=== PATIENT | female | born 1975 | race Caucasian/White ===

== ENCOUNTER 2019-11-14 11:00 | Outpatient (RCR) | payer MEDICARE, MEDICAID, SELFPAY ==
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
--- NOTE | 2019-11-14 11:35 | PTOPEVAL ---
PHYSICAL THERAPY DISCHARGE NOTE Thank you for referring Pat Lomax to [facility]. I recommend Pat discharge from skilled PT at this time with HEP. Please review, sign, date and return this plan of care JAZMINE. I agree with and certify that the following plan of care is medically necessary. Referring Physician Date Attending Provider: Romeo Dubon, PA Diagnosis left shoulder pain Onset June 2019 Subjective Information Pat reports that she has not Query Text:As Reported By Patient/ had much pain in the shoulder Family except when she did an exercise that caused it to pop . After that occasion she states it hurt for two days, but no longer hurts today. Pain Assessment Timing of Pain Assessment Timing of Pain Assessment Assessment Pain Scale Pain Scale Used Numeric (1 - 10) Self Report Pain Assessment Left Shoulder(s) Reported Pain Level 0 Pain Description Aching,Dull Pain Aggravating Factors Changing Position,Exercise/ Activity Pain Behaviors None Interventions Used By Clinicians Exercise Pain Score Pain Score 0: Self Report Upper Extremity Range of Motion Scapular/ Shoulder Range of Motion Left Shoulder Flexion - Active 160 Shoulder Abduction - Active 160 Shoulder Medial Rotation - Active T8 Query Text:Reach Behind the Back Shoulder Lateral Rotation - Active T2 Query Text:Reach Behind the Head Upper Extremity Muscle Strength Testing Scapular/Shoulder Left Shoulder Flexion Strength 5 Normal Shoulder Abduction Strength 5 Normal Shoulder Medial Rotation Strength 5 Normal Shoulder Lateral Rotation Strength 4+ Good + Shoulder Strength Comments feels tight to the pressure Muscle Length Testing Muscle Length Testing Pectoralis Major- Sternal Fibers Muscle (R) Moderate Tightness Length Pectoralis Major- Clavicular Fibers (R) Moderate Tightness Muscle Length Palpation improved tissue quality throughout; pec major tendon continues to have tightness noted PT Clinical Summary Pat has participated in 8 visits of physical therapy. She demonstrates today a significant improvement in strength and ROM of left shoulder as well as decreased reports of pain. She does report tightness and there is noted decreased lef
== END 2019-11-14 13:34 | disposition home or self-care (01) ==
LOC: ANHPT 11:00
PROVIDERS: PCP Physician Assistant; Visit Provider Physician Assistant
DX: M25.812 Other specified joint disorders, left shoulder (principal)
CPT/HCPCS: 97035; 97110; 97140; 97161; 97542

== ENCOUNTER → 2021-02-26 08:05 | Outpatient (CLI) | payer MEDICARE, MEDICAID, SELFPAY ==
--- NOTE | ~2021-02-26 | MR_ITS ---
EXAMINATION: MR knee LT wo con DATE: 02/26/2021 09:28 INDICATION: Left knee pain TECHNIQUE: Magnetic resonance imaging (MRI) of the left knee was performed without intravenous contra st. Sequences included coronal PD-weighted FSE, coronal PD-weighted FS FSE, sagittal T2-weighted FSE , sagittal PD-weighted FS FSE and axial PD weighted fat saturated FSE. COMPARISON: Left knee radiographs dated 01/14/2021 FINDINGS: Medial compartment: Medial meniscus is normal. Chondral swelling and deep fissuring without degenerative subchondral lopez ges at the posterior weightbearing medial femoral condyle. Remaining cartilage in medial compartment is normal. Lateral compartment: Longitudinal horizontal tear extending to the inferior articular surface of the posterior body and la teral side of the posterior horn of the lateral meniscus. Partial-thickness chondral ulceration and d eep fissuring with mild underlying cortical irregularity and subarticular edema at the junction of th e anterior to central weightbearing lateral femoral condyle. Mild partial-thickness chondral fissurin g without degenerative subchondral changes at the posterior margin of the lateral tibial plateau. Patellofemoral compartment: Deep chondral fissuring with cortical irregularity and mild subarticular edema at the central aspect of the patellar apical ridge and immediately adjacent medial and lateral patellar facets. Trochlear c artilage is normal. Ligaments and tendons: Anterior and posterior cruciate ligaments are normal. The medial collateral ligament and fibular franck ateral ligament complex are normal. The extensor mechanism is normal. The visualized medial and later al hamstring tendons as well as the iliotibial band are normal. Fluid: Physiologic amount of fluid in the joint space. No loose osteochondral bodies identified. Osseous/other: No fracture or pathologic marrow replacing process. IMPRESSION: 1. Lateral meniscal tear. 2. Mild bilateral patellofemoral osteoarthritis with regions of high-grade chondromalacia at the guzman lla and weightbearing lateral femoral condyle. Reviewed, dictated and finalized at location [facility]. IMPRESSION: 1. Lateral meniscal tear. 2. Mild bilateral patellofemoral osteoarthritis with regions of high-grade macie dromalacia at the patella and weightbearing lateral femoral condyle.
== END ==
PROVIDERS: PCP Physician Assistant; Visit Provider Orthopaedic Surgery
DX: S83.282A Other tear of lateral meniscus, current injury, left knee, initial encounter (principal); M17.12 Unilateral primary osteoarthritis, left knee; M22.42 Chondromalacia patellae, left knee
CPT/HCPCS: 73721

== ENCOUNTER 2021-03-29 00:23 | Day surgery (SDC) | payer MEDICARE, MEDICAID, SELFPAY ==
[2021-03-21 13:37] VITALS: BMI 35.5
--- NOTE | 2021-03-28 13:39 | WPDANESEPPF ---
Anes - Initial Pre Proc Eval Procedure: Operation Date: 03/29/21 07:30 Proposed Procedures p Left Knee Arthroscopy - Charles Keller MD Date/Time: 03/28/21 13:39 Surgeon: Charles Keller MD Pre Op Diagnosis: Lt Knee Lateral Meniscus Tear Patient Data Age: 46 Gender: F Height: 1.55 m Weight: 85.28 kg Allergies Allergy/AdvReac Type Severity Reaction Status Date / Time amoxicillin Allergy Unknown RASH, GI Verified 03/29/21 06:36 UPSET,swallowing erythromycin base Allergy Unknown Rash, GI Verified 03/29/21 06:36 UPSET, SWELLING polyethylene glycol Allergy Unknown unknown Verified 03/29/21 06:36 [From Golytely] polyethylene glycol 3350 Allergy Unknown unknown Verified 03/29/21 06:36 [From Golytely] potassium chloride Allergy Unknown unknown Verified 03/29/21 06:36 [From Golytely] sodium [From Golytely] Allergy Unknown unknown Verified 03/29/21 06:36 sodium bicarbonate Allergy Unknown unknown Verified 03/29/21 06:36 [From Golytely] sodium chloride Allergy Unknown unknown Verified 03/29/21 06:36 [From Golytely] sodium sulfate Allergy Unknown unknown Verified 03/29/21 06:36 [From Golytely] Sulfa (Sulfonamide Allergy Unknown TONGUE Verified 03/29/21 06:36 Antibiotics) SWELLING fentanyl Allergy Rash Verified 03/29/21 06:36 levofloxacin [From Levaquin] Allergy rash,seeing Verified 03/29/21 06:36 things Home Medications Medication Instructions Recorded Confirmed Type zbhrhw-rijzpd-gqilnjnvx-multivit,min-FA 1 tablet PO DAILY 01/14/21 03/29/21 History 2 gram-200 mcg chewable tablet ascorbic acid (vitamin C) 250 mg 250 mg PO DAILY 01/14/21 03/29/21 History tablet cholecalciferol (vitamin D3) 1,250 1,250 mcg PO WEEKLY 01/14/21 03/29/21 History mcg (50,000 unit) capsule ezetimibe 10 mg tablet 10 mg PO HS 01/14/21 03/29/21 History fenofibrate 160 mg tablet 160 mg PO HS 01/14/21 03/29/21 History fludrocortisone 0.1 mg tablet 0.1 mg PO DAILY 01/14/21 03/29/21 History mecobalamin (vitamin B12) 1,000 1,000 mcg SUBLINGUAL HS 01/14/21 03/29/21 History mcg disintegrating tablet,sublingual naproxen 500 mg tablet,delayed 500 mg PO BID PRN 01/14/21 03/29/21 History release omega-3 fatty acids 1,000 mg 1,000 mg PO HS 01/14/21 03/29/21 History capsule potassium citrate 5 mEq (540 mg) 5 meq PO DAILY 01/14/21 03/29/21 History tablet,extended release pravastatin 80 mg tablet 80 mg PO HS 01/14/21 03/29/21 History prednisone 1 mg tablet 1 mg PO HS 01/14/21 03/29/21 History vitamin E mixed 400 unit tablet 400 unit PO HS 01/14/21 03/29/21 History chlorhexidine gluconate 4 % 1 applic TOPICAL ONCE #237 ml 03/05/21 03/29/21 Rx topical liquid Patient hx anesthesia problems: none Family hx anesthesia problems: none Results Review: All pre-operative results and documents have been reviewed as part of the pre-operative evaluation. [facility] Past Medical History Medical History Chondromalacia, knee Congenital hip dysplasia High cholesterol History of headache History of seizures Left knee pain Osteoporosis Family History Family History Other Arthritis Cancer Diabetes mellitus Hypertension Social History Social History (Updated 02/15/21 @ 10:38 by Marichuy Godoy MA) Smoking status: Never smoker Alcohol intake: never Substance use: never Substance use type: does not use Living arrangements: with family Gender identity (if verbalized by the patient): Female Spiritual care concerns: No Anes - Eval Final PreProcedure Day of Procedure 03/28/21 13:39 Patient weight: obese Heart: regular rate and rhythm Lungs: clear to auscultation Airway: Mallampati scale class II Neurological: alert and oriented Last oral intake: >/= 8 hours ASA classification: III Emergent: no Anesthetic plan: proceed Anesthesia typ
[2021-03-29] VITALS (13 sets, daily range): BP systolic 88–125; BP diastolic 43–83; PULSE 56–65; RESP 16–24; TEMP 36.1–36.3; O2SAT 94–100
[2021-03-29] MEDS: ACETAMINOPHEN 500 MG TABLET 1000 MG PO (06:20)
[2021-03-29] MEDS: CELECOXIB 200 MG CAPSULE PO (06:20)
[2021-03-29] MEDS: LACTATED RINGERS 1,000 ML 30 ML IV CONT ×2 (06:25→09:02)
[2021-03-29] MEDS: DEXAMETHASONE SOD PHOS INJ 4 MG/ML VIAL IM (06:34)
--- NOTE | 2021-03-29 07:16 | WPDHPUPDATE1 ---
History and Physical Update Update Date/Time: 03/29/21 07:16 History and Physical has been reviewed, including an updated exam of the patient. There are NO changes in the patient's condition. Risks, benefits, and alternatives have been discussed and questions answered. Patient agrees to proceed with procedure.
[2021-03-29] MEDS: ceFAZolin 2 GM/D5W 50 ML 2 GM/50 ML BAG IVPB (07:27)
[2021-03-29] MEDS: BUPIVACAINE HCL 0.5% PF 30 ML VIAL INFILTRATE (07:58)
--- NOTE | 2021-03-29 08:36 | W.PM.PROC2 ---
Procedure Note - Detailed Date of Procedure 03/29/21 Pre-op Diagnosis Lt Knee Lateral Meniscus Tear Post-op Diagnosis same Procedure Performed LEFT KNEE SCOPE Surgeon Charles Keller MD Anesthesia general Description of Procedure PATIENT WAS TAKEN TO THE OR. LEFT LEG WAS PREPPED AND DRAPED STERILE. TROCARS WERE PLACED IN THE USUAL FASHION. CAMERA WAS INTRODUCED. THERE WAS SEVERE CHONDROMALACIA TO THE PATELLA FEMORAL JOINT. THERE WAS A LOT OF SYNOVITIS IN ALL COMPARTMENTS. THE MEDIAL COMPARTMENT SHOWED NO CHONDROMALACIA TO THE MEDIAL FEMORAL CONDYLE OR PLATEAU. THERE WAS NO MEDIAL MENISCUS TEAR. THE ACL WAS INTACT. THE LATERAL MENISCUS WAS TORN AT THE MID SUBSTANCE. THE TEAR WAS RESECTED. THE LATERAL COMPARTMENT HAD GRADE 2 CHONDROMALACIA AT THE LATERAL PLATEAU. CHONDROPLASTY WAS PREFORMED. A SYNOVECTOMY WAS PREFORMED WELL. THE PATELLO FEMORAL JOINT UNDERWENT CHONDROPLASTY OVER THE PATELLA AND TROCHLEA. THERE WAS GRADE 3 CHONDROMALACIA IN MOST OF THE TROCHLEA AND PART OF THE PATELLA. SYNOVECTOMY WAS PREFORMED IN THE SUPERIOR MEDIAL COMPARTMENT. THE WOUNDS WERE APPROXIMATED WITH 4.0 NYLON. STERILE DRESSING WAS APPLIED. PATIENT WAS EXTUBATED. Estimated Blood Loss 5 Complications No immediate complications Condition stable Disposition PACU
[2021-03-29] MEDS: HYDROmorphone HCL INJ (*CRX) 1 MG/ML SYR 0.25 MG IV PUSH ×2 (08:55→09:00)
--- NOTE | 2021-03-29 10:30 | SUR.PHASEII ---
1030- Patient stated she has a family member with walker at home she can borrow to use post operatively. This RN educated patient on crutch usage and sent her home with discharge instructions for crutch training along with a set of crutches. Patient verbalized understanding of using crutches at home.
== END 2021-03-29 10:45 | disposition home or self-care (01) ==
PROVIDERS: PCP Physician Assistant; Visit Provider Orthopaedic Surgery
PROC: (CPT 29870; principal; 2021-03-29 07:30)
DX: M23.201 Derangement of unspecified lateral meniscus due to old tear or injury, left knee (principal); M22.42 Chondromalacia patellae, left knee; Q65.89 Other specified congenital deformities of hip; M81.0 Age-related osteoporosis without current pathological fracture; R56.9 Unspecified convulsions; E78.00 Pure hypercholesterolemia, unspecified; E66.9 Obesity, unspecified; Z68.36 Body mass index [BMI] 36.0-36.9, adult
CPT/HCPCS: 29881; A9270; J0690; J1100; J1170; J2250; J2405; J2704; J7120

== ENCOUNTER 2023-02-05 00:13 | Day surgery (SDC) | payer MEDICARE, MEDICAID, SELFPAY ==
[2023-01-22 14:10] VITALS: BMI 35.8
--- NOTE | 2023-02-04 20:22 | PM.HPGS ---
History of Present Illness History of Present Illness Consent: Risks, benefits, and alternatives have been discussed and questions answered. Patient agrees to proceed with procedure. Chief complaint: neoplasm screening Narrative: Pat Lomax is a 47 year old female who is referred for colon cancer screening. Review of Systems Review of Systems: All systems reviewed & are unremarkable except as noted in HPI and below PMFSH Past Medical History Medical History Chondromalacia, knee Congenital hip dysplasia High cholesterol History of headache History of seizures as child after vaccine age 11 Left knee pain Osteoporosis Family History Family History Other Arthritis Cancer Diabetes mellitus Hypertension Social History Social History Smoking status: Never smoker Tobacco type: cigarettes Alcohol intake: never Substance use: never Substance use type: does not use Living arrangements: with family Gender identity (if verbalized by the patient): Female Spiritual care concerns: No Meds Home Medications and Allergies Home Medications Medication Instructions Recorded Confirmed Type hvgprz-plmcca-lcmteltqd-multivit,min-FA 1 tablet PO DAILY 01/14/21 02/05/23 History 2 gram-200 mcg chewable tablet ascorbic acid (vitamin C) 250 mg 250 mg PO DAILY 01/14/21 02/05/23 History tablet cholecalciferol (vitamin D3) 1,250 1,250 mcg PO WEEKLY 01/14/21 02/05/23 History mcg (50,000 unit) capsule ezetimibe 10 mg tablet 10 mg PO HS 01/14/21 02/05/23 History fenofibrate 160 mg tablet 160 mg PO HS 01/14/21 02/05/23 History fludrocortisone 0.1 mg tablet 0.1 mg PO DAILY 01/14/21 02/05/23 History mecobalamin (vitamin B12) 1,000 1,000 mcg sublingual HS 01/14/21 02/05/23 History mcg disintegrating tablet,sublingual naproxen 500 mg tablet,delayed 500 mg PO BID PRN Pain 01/14/21 02/05/23 History release omega-3 fatty acids 1,000 mg 1,000 mg PO HS 01/14/21 02/05/23 History capsule potassium citrate 5 mEq (540 mg) 5 meq PO DAILY 01/14/21 02/05/23 History tablet,extended release pravastatin 80 mg tablet 80 mg PO HS 01/14/21 02/05/23 History prednisone 1 mg tablet 1 mg PO HS 01/14/21 02/05/23 History vitamin E mixed 400 unit tablet 400 unit PO HS 01/14/21 02/05/23 History chlorhexidine gluconate 4 % 1 applic topical ONCE #237 mL 03/05/21 02/05/23 Rx topical liquid (Hibiclens) hydrocodone 5 mg-acetaminophen 325 1 tablet PO Q12H PRN pain #20 tabs 03/29/21 02/05/23 Rx mg tablet Allergies Allergy/AdvReac Type Severity Reaction Status Date / Time amoxicillin Allergy Unknown RASH, GI Verified 02/05/23 08:41 UPSET,swallowing erythromycin base Allergy Unknown Rash, GI Verified 02/05/23 08:41 UPSET, SWELLING polyethylene glycol Allergy Unknown unknown Verified 02/05/23 08:41 [From Golytely] polyethylene glycol 3350 Allergy Unknown unknown Verified 02/05/23 08:41 [From Golytely] potassium chloride Allergy Unknown unknown Verified 02/05/23 08:41 [From Golytely] sodium [From Golytely] Allergy Unknown unknown Verified 02/05/23 08:41 sodium bicarbonate Allergy Unknown unknown Verified 02/05/23 08:41 [From Golytely] sodium chloride Allergy Unknown unknown Verified 02/05/23 08:41 [From Golytely] sodium sulfate Allergy Unknown unknown Verified 02/05/23 08:41 [From Golytely] Sulfa (Sulfonamide Allergy Unknown TONGUE Verified 02/05/23 08:41 Antibiotics) SWELLING fentanyl Allergy Rash Verified 02/05/23 08:41 levofloxacin [From Levaquin] Allergy rash,seeing Verified 02/05/23 08:41 things Exam Const: General: alert Orientation/consciousness: patient oriented x3 Resp: Auscultation: clear to auscultation bilaterally Cardio: Rhythm: regular rhythm GI: GI Palp: Yes Soft to
[2023-02-05 08:44] VITALS: BP 115/70; PULSE 64; RESP 16; TEMP 36.1; O2SAT 99; BMI 34.0
--- NOTE | 2023-02-05 09:03 | WPDANESEPPF ---
Anes - Initial Pre Proc Eval Procedure: Operation Date: 02/05/23 10:00 Proposed Procedures p Screening Colonoscopy - Chris Ramirez MD Date/Time: 02/05/23 09:03 Surgeon: Chris Ramirez MD Pre Op Diagnosis: neoplasm screening Patient Data Age: 47 Gender: F Height: 1.55 m Weight: 81.8 kg Last Vital Signs Temp 36.1 C L 02/05/23 08:44 Pulse 64 02/05/23 08:44 Resp 16 02/05/23 08:44 BP 115/70 02/05/23 08:44 Pulse Ox 99 02/05/23 08:44 O2 Del Method Room Air 02/05/23 08:44 Allergies Allergy/AdvReac Type Severity Reaction Status Date / Time amoxicillin Allergy Unknown RASH, GI Verified 02/05/23 08:41 UPSET,swallowing erythromycin base Allergy Unknown Rash, GI Verified 02/05/23 08:41 UPSET, SWELLING polyethylene glycol Allergy Unknown unknown Verified 02/05/23 08:41 [From Golytely] polyethylene glycol 3350 Allergy Unknown unknown Verified 02/05/23 08:41 [From Golytely] potassium chloride Allergy Unknown unknown Verified 02/05/23 08:41 [From Golytely] sodium [From Golytely] Allergy Unknown unknown Verified 02/05/23 08:41 sodium bicarbonate Allergy Unknown unknown Verified 02/05/23 08:41 [From Golytely] sodium chloride Allergy Unknown unknown Verified 02/05/23 08:41 [From Golytely] sodium sulfate Allergy Unknown unknown Verified 02/05/23 08:41 [From Golytely] Sulfa (Sulfonamide Allergy Unknown TONGUE Verified 02/05/23 08:41 Antibiotics) SWELLING fentanyl Allergy Rash Verified 02/05/23 08:41 levofloxacin [From Levaquin] Allergy rash,seeing Verified 02/05/23 08:41 things Home Medications Medication Instructions Recorded Confirmed Type ikasue-pvdpyx-wxbohvpjq-multivit,min-FA 1 tablet PO DAILY 01/14/21 02/05/23 History 2 gram-200 mcg chewable tablet ascorbic acid (vitamin C) 250 mg 250 mg PO DAILY 01/14/21 02/05/23 History tablet cholecalciferol (vitamin D3) 1,250 1,250 mcg PO WEEKLY 01/14/21 02/05/23 History mcg (50,000 unit) capsule ezetimibe 10 mg tablet 10 mg PO HS 01/14/21 02/05/23 History fenofibrate 160 mg tablet 160 mg PO HS 01/14/21 02/05/23 History fludrocortisone 0.1 mg tablet 0.1 mg PO DAILY 01/14/21 02/05/23 History mecobalamin (vitamin B12) 1,000 1,000 mcg sublingual HS 01/14/21 02/05/23 History mcg disintegrating tablet,sublingual naproxen 500 mg tablet,delayed 500 mg PO BID PRN Pain 01/14/21 02/05/23 History release omega-3 fatty acids 1,000 mg 1,000 mg PO HS 01/14/21 02/05/23 History capsule potassium citrate 5 mEq (540 mg) 5 meq PO DAILY 01/14/21 02/05/23 History tablet,extended release pravastatin 80 mg tablet 80 mg PO HS 01/14/21 02/05/23 History prednisone 1 mg tablet 1 mg PO HS 01/14/21 02/05/23 History vitamin E mixed 400 unit tablet 400 unit PO HS 01/14/21 02/05/23 History chlorhexidine gluconate 4 % 1 applic topical ONCE #237 mL 03/05/21 02/05/23 Rx topical liquid (Hibiclens) hydrocodone 5 mg-acetaminophen 325 1 tablet PO Q12H PRN pain #20 tabs 03/29/21 02/05/23 Rx mg tablet Patient hx anesthesia problems: none Family hx anesthesia problems: none Results Review: All pre-operative results and documents have been reviewed as part of the pre-operative evaluation. [facility] Past Medical History Medical History (Updated 02/05/23 @ 09:03 by Hipolito Corey MD) Chondromalacia, knee Congenital hip dysplasia High cholesterol History of headache History of seizures as child after vaccine age 11 Left knee pain Osteoporosis Family History Family History Other Arthritis Cancer Diabetes mellitus Hypertension Social History Social History Smoking status: Never smoker Tobacco type: cigarettes Alcohol intake: never Substance use: never Substance use type: does not use Living arrangements: with family Gender identity (if verbalized by the patient)
[2023-02-05] MEDS: LACTATED RINGERS 1,000 ML 150 ML IV CONT (09:24)
[2023-02-05] MEDS: SIMETHICONE ORAL SUSPENSION 20 MG/0.3 ML 30 ML BOTTLE 0.6 ML IRRIGATION (09:38)
[2023-02-05 09:46] VITALS: BP 87/57; PULSE 65; RESP 24; O2SAT 96
[2023-02-05 09:56] VITALS: BP 89/60; PULSE 60; RESP 16; O2SAT 96
[2023-02-05 10:06] VITALS: BP 100/64; PULSE 62; RESP 16; O2SAT 96
== END 2023-02-05 10:14 | disposition home or self-care (01) ==
PROVIDERS: PCP Internal Medicine; Visit Provider Internal Medicine Gastroenterology
PROC: 0DJD8ZZ Inspection of Lower Intestinal Tract, Via Natural or Artificial Opening Endoscopic (ICD-10-PCS; CPT 45378; principal; 2023-02-05 10:00)
DX: Z12.11 Encounter for screening for malignant neoplasm of colon (principal); K62.1 Rectal polyp; K57.30 Diverticulosis of large intestine without perforation or abscess without bleeding; K64.8 Other hemorrhoids; E78.00 Pure hypercholesterolemia, unspecified; Z79.891 Long term (current) use of opiate analgesic; E66.9 Obesity, unspecified; Z68.34 Body mass index [BMI] 34.0-34.9, adult
CPT/HCPCS: 45380; 88305; J2704; J7120

== ENCOUNTER 2024-02-17 12:56 | Outpatient (CLI) | payer MEDICARE, MEDICAID, SELFPAY ==
--- NOTE | ~2024-02-17 | MR_ITS ---
MRI of the lumbar spine Clinical History: Radiculopathy Technique: Axial T2-weighted images, and sagittal T1-weighted, T2-weighted, and T2 fat-sat images wer e acquired. Findings: No fracture seen. There is 6 mm anterolisthesis of L4 over L5. There is 2 mm anterolisthesi s of L3 over L4. No bone marrow signal abnormality seen. At L1-L2, there is no disc bulge or herniation. There is mild to moderate facet hypertrophy. No centr al canal stenosis or neural foraminal narrowing. At L2-L3, there is no disc bulge or herniation. There is moderate facet arthropathy. No central canal stenosis or neural foraminal narrowing. At L3-L4, there is no significant disc bulge or herniation. There is severe facet joint degenerative change. No central canal stenosis or neural foraminal narrowing. At L4-L5, there is mild disc bulge/uncovering with severe facet arthropathy. No central canal stenosi s. Neural foramina are preserved. At L5-S1, there is no disc bulge or herniation. There is moderate to advanced facet arthropathy. No c entral canal stenosis or neural foraminal narrowing. Paravertebral soft tissues are unremarkable. Impression: 6 mm anterolisthesis of L4 over L5. 2 mm anterolisthesis of L3 over L4. Minimal degenerative change otherwise, as above. Reviewed, dictated and finalized at [facility]. Impression: 6 mm anterolisthesis of L4 over L5. 2 mm anterolisthesis of L3 over L4. Minimal degenerative change otherwise, as above.
== END 2024-02-17 12:57 | disposition home or self-care (01) ==
PROVIDERS: PCP Internal Medicine Gastroenterology; Visit Provider Orthopaedic Surgery
DX: M54.16 Radiculopathy, lumbar region (principal); M51.36 Other intervertebral disc degeneration, lumbar region
CPT/HCPCS: 72148